=== PATIENT | male | born 1985 | race Hispanic/Latino ===

== ENCOUNTER 2018-09-02 13:30 | Emergency (ER) | payer OTHER ==
[2018-09-02 13:38] VITALS: TEMP 98.7; O2SAT 98
[2018-09-02] MEDS ORDERED: Lidocaine 1% Inj (20ml) INFIL ONE (14:16)
[2018-09-02] MEDS ORDERED: Bacitracin 500 Units/gm Oint Foilpak UD TOP ONE (14:18)
--- NOTE | 2018-09-02 14:19 | C.PDOC ---
History Of Present Illness 33 y/o male c/o pain to left index finger. cut it with a box sealing machine feeder at work, last tdap 3-4 yrs ago. pt has hx niddm. Time Seen by Provider: 09/02/18 14:06 Chief Complaint (Nursing): Abnormal Skin Integrity History Per: Patient History/Exam Limitations: no limitations Onset/Duration Of Symptoms: Hrs Current Symptoms Are (Timing): Still Present Location Of Injury: Left: Hand (laceration to the index finger) Quality Of Symptoms: Painful Past Medical History Reviewed: Historical Data, Nursing Documentation, Vital Signs Vital Signs: Last Vital Signs Temp 98.7 F 09/02/18 13:34 Pulse 72 09/02/18 13:34 Resp 20 09/02/18 13:34 BP 116/72 09/02/18 13:34 Pulse Ox 98 09/02/18 13:34 Primary Care Provider: Non [facility] Provider, - Medical History PMH: Diabetes Surgical History: Appendectomy Family History: States: Unknown Family Hx - Social History Hx Alcohol Use: Yes Hx Substance Use: No - Immunization History Hx Tetanus Toxoid Vaccination: No Hx Influenza Vaccination: Yes (2016) Hx Pneumococcal Vaccination: No Review Of Systems Constitutional: Negative for: Fever, Chills, Weakness Musculoskeletal: Positive for: Hand Pain (laceration to the left index finger) Neurological: Negative for: Weakness, Numbness Physical Exam - Physical Exam Appears: Non-toxic, No Acute Distress Skin: Warm, Dry, Other (+1.5 cm curved flap laceration to the distal medial aspect of the left index finger) Extremity: Normal ROM (left index finger full flexion and extension of dip and pip , with flap laceration to medial aspect tip finger. ), Capillary Refill (less than 2 sec), No Deformity Pulses: Left Radial: Normal, Right Radial: Normal Neurological/Psych: Oriented x3, Normal Speech, Normal Cognition, Normal Motor, Normal Sensation ED Course And Treatment O2 Sat by Pulse Oximetry: 98 (in RA) Pulse Ox Interpretation: Normal Laceration - Laceration Repair left 2nd fingertip Wound Length (In cm): 1 Description Of Wound: Linear, Clean Wound Cleansed With: Betadine, Sterile Saline Anesthesia: Lidocaine 1% Wound Examination: Irrigated With Saline, No FB With Wound Exploration, No Tendon Injury With Wound Exploration Wound Closure: Suture (5-0 ethilon) Suture Technique And Material Used: Interrupted (#6) Wound Complexity: Simple Medical Decision Making Medical Decision Making: pt with flap like laceration to left 2nd distal fingertip, wound repaired. given pts' dm, will put prophylactically on keflex, and discussed with pt that flap may not heal well. pt understands. Initial Plan: Laceration repair performed. Patient given Keflex PO and Motrin PO Disposition Counseled Patient/Family Regarding: Diagnosis, Need For Followup, Rx Given - Disposition Disposition: HOME/ ROUTINE Disposition Time: 15:01 Condition: GOOD Additional Instructions: Keep wound clean and dry. Change dressing daily, wash with soap and water. pat dry, and apply bacitracin. Take antibiotics as prescribed. Ibuprofen for pain. Follow [facility] doctor in 1-2 days. Return to ER for any sign of infection. 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 (Shabnam Parker) - Scribe Statement The provider has reviewed the documentation as recorded by the Scribe (Shabnam Parker) All medical record entries made by the Scribe were at my direction and personally dictated by me. I have reviewed the chart and agree that the record accurately reflects my personal performance of the history, physical exam, medical decision making, and the department course for this patient. I have also personally directed, reviewed, and agree with the discharge instructions and disposition.
[2018-09-02] MEDS ORDERED: Lidocaine Hydrochloride 10 ML INJ ONE (14:24)
[2018-09-02] MEDS ORDERED: Bacitracin 500 Units/gm Oint Foilpak UD ONE (14:27)
[2018-09-02 15:12] VITALS: BP 110/70; PULSE 70; RESP 19
== END 2018-09-02 15:12 | disposition home or self-care (01) ==
LOC: C.ER 13:30
DX: S61.211A Laceration without foreign body of left index finger without damage to nail, initial encounter (principal); W45.8XXA Other foreign body or object entering through skin, initial encounter; Y92.89 Other specified places as the place of occurrence of the external cause; Y99.0 Civilian activity done for income or pay